=== PATIENT | male | born 1955 | race Asian ===

== ENCOUNTER 2022-11-16 16:36 | Emergency (ER) | payer OTHER ==
[~2022-11-16] VITALS: Ht 177.8 cm; Wt 78.5 kg
[2022-11-16 17:27] LABS: PLATELET COUNT 226 K/uL (142-355)
[2022-11-16 17:29] LABS: POTASSIUM 4.7 mmol/L (3.6-5.2)
[2022-11-16] MEDS ORDERED: CARV25TA PO (21:36)
[2022-11-16] MEDS ORDERED: DOXA2TAB PO (21:37)
[2022-11-16] MEDS ORDERED: ZYPREXA ZYDI10 MG PO (21:38)
[2022-11-16] MEDS ORDERED: ZYPREXA ZYDI15 MG PO (21:39)
[2022-11-16] MEDS ORDERED: POTASSIUM CHLO20 ME1 PO (21:40)
== END 2022-11-16 19:10 | disposition still patient (30) ==
LOC: ED 17:16
PROVIDERS: Emergency Medicine Emergency Medical Services
DX: R46.89 Other symptoms and signs involving appearance and behavior (principal); R45.1 Restlessness and agitation; Z11.52 Encounter for screening for COVID-19; Z04.6 Encounter for general psychiatric examination, requested by authority
CPT/HCPCS: 80053; 85027; 87635; 93005; 99283; U0003